=== PATIENT | male | born 1950 | race American Indian/Alaskan Native ===

== ENCOUNTER 2016-11-14 15:28 | Inpatient (IN) | payer OTHER ==
--- NOTE | 2016-11-14 16:08 | Emergency Department Report ---
Chief Complaint: Chest Pain Stated Complaint: CHEST PAIN Time Seen by Provider: 11/14/16 16:04 - HPI History of Present Illness: 66 y/o voice complain of chest pain x 1week .pt state pain 4/10.pt state he taken aspirin this am .pt denies any n/v at present . - ROS Review of Systems: Per HPI - Exam Vital Signs: Vital Signs 11/14/16 15:40 Temperature 98.1 F Pulse Rate 67 Respiratory 16 Rate Blood Pressure 114/76 O2 Sat by Pulse 95 Oximetry Physical Exam: GENERAL: The patient is well-developed and well-nourished. Patient is in NAD. HENT: Normocephalic. Atraumatic. Patient has moist mucous membranes. Throat: No erythema, swelling or exudates. EYES: Extraocular motions are intact, PERRL NECK: Supple. No meningitic signs are noted. There is no adenopathy noted. CHEST/LUNGS: Clear to auscultation bilaterally. No wheezing, rales or rhonchi noted. There is no respiratory distress noted. HEART/CARDIOVASCULAR: Regular rate and rhythm. Normal S1 S2. No murmurs, rubs , clicks, or gallops. ABDOMEN: Abdomen is soft, nontender.. Bowel sounds normoactive. There is no abdominal distention. Negative rebound tenderness. : Deferred. SKIN: There is no rash. There is no edema. There is no diaphoresis. NEURO: The patient is A&Ox3. The patient has no focal neurologic deficits. MUSCULOSKELETAL: There is no tenderness or deformity. There is no limitation range of motion. PSYCH: Pt has appropriate mood and affect. MSE screening note: Focused history and physical exam performed. Due to findings the following was ordered: ED Disposition for MSE Condition: Stable
[2016-11-14 16:51] LABS: Basophils % (Auto) 0.8 % (0.0-1.8); Eosinophils % (Auto) 1.8 % (0.0-4.3); Hematocrit 45.7 % (35.5-45.6); Hemoglobin 15.3 gm/dl (11.8-15.2); Mean Corpuscular HGB Conc 34 % (32-34); Mean Corpuscular Hemoglobin 33 pg (28-32); Mean Corpuscular Volume 98 fl (84-94); Platelet Count 293 K/mm3 (140-440); Red Blood Count 4.69 M/mm3 (3.65-5.03); Red Cell Distribution Width 15.2 % (13.2-15.2); White Blood Count 5.5 K/mm3 (4.5-11.0)
[2016-11-14 17:01] LABS: INR 0.94 (0.87-1.13)
[2016-11-14 17:02] LABS: Partial Thromboplastin Time 27.2 Sec. (24.2-36.6)
[2016-11-14 17:23] LABS: Anion Gap 17 mmol/L; Blood Urea Nitrogen 13 mg/dL (9-20); Carbon Dioxide 28 mmol/L (22-30); Chloride 102.9 mmol/L (98-107); Creatine Kinase 200 units/L (55-170); Glucose 101 mg/dL (75-100); Potassium 4.9 mmol/L (3.6-5.0); Sodium 143 mmol/L (137-145)
--- NOTE | 2016-11-15 02:39 | Admit Criteria Form ---
Admission Criteria Documentation: CHEST PAIN: OBSERVATION CARE USE THIS FORM ONLY WHEN INPATIENT ADMISSION CRITERIA ARE NOT MET. (Place X for any and all applicable criteria): Placement for observation care may be appropriate for a patient with chest pain and ANY ONE of the following (1)(2)(3)(4)(5): []I. Suspected cardiac ischemia with nondiagnostic initial evaluation (eg, ECG, cardiac biomarkers) requiring further immediate evaluation such as stress testing and repeat laboratory testing to clarify diagnosis []II. Other suspected diagnosis requiring observation and monitoring during diagnostic evaluation (eg, pulmonary embolus, aortic dissection, pneumothorax, pericarditis, GI bleeding) (6)(7)(8)(9) [X]III. Other observation care needs (Use General Criteria: Observation Care) The original [employer] content created by [employer] has been revised. The portions of the content which have been revised are identified through the use of italic text, and [facility] has neither reviewed nor approved the modified material. All other unmodified content is copyright [facility] [facility]. Please see references footnoted in the original [facility] edition 2015 Admission Criteria Met: Yes
[2016-11-15] MEDS ORDERED: LIDOCAINE VISCOUS 2% PO ONE (03:33)
[2016-11-15] MEDS ORDERED: ALUM-MAG HYDROX-SIMETH 200-200-20MG/5ML PO ONE (03:33)
--- NOTE | 2016-11-15 03:53 | Emergency Department Report ---
ED Chest Pain HPI - General Chief Complaint: Chest Pain Stated Complaint: CHEST PAIN Time Seen by Provider: 11/15/16 03:16 Source: patient, old records reviewed (September 2015 cardiac cath reviewed) Mode of arrival: Ambulatory Limitations: No Limitations - History of Present Illness Initial Comments: 66-year-old male with a past medical history CAD, IN in 2012 with 2 stent placement, prostate CA status post radiation, and GERD presents to the hospital complains of intermittent sternal chest pain for the past one week. Pain is sharp without aggravating or alleviating factors. Rated 4/10 in intensity. Denies associated shortness of breath, nausea, vomiting, or diaphoresis. Last [id number] travel was to and from [place] end october. No calf tenderness or edema reported. Compliant with medications. Patient last cardiac cath September 2015. Patient states he also has history of GERD and cannot office of the difference between IN and GERD related pain. Currently taking Zantac. Homicide Detective: Sarahi cleaning specialist Severity scale (0 -10): 2 - Related Data Home Medications Medication Instructions Recorded Confirmed Last Taken Aspirin [Aspirin BABY CHEW TAB] 81 mg PO QDAY 02/22/14 10/01/15 09/30/15 AtorvaSTATin [Lipitor] 80 mg PO DAILY 06/26/15 10/01/15 09/30/15 Metoprolol [Lopressor TAB] 12.5 mg PO BID 09/28/15 10/01/15 09/30/15 Pantoprazole [Protonix TAB] 40 mg PO QDAY 10/01/15 10/01/15 09/30/15 Previous Rx's Medication Instructions Recorded Last Taken Type Tamsulosin [Flomax] 0.4 mg PO QHS #30 05/16/15 09/30/15 Rx Allergies Allergy/AdvReac Type Severity Reaction Status Date / Time No Known Allergies Allergy Unverified 09/15/13 11:24 GIANNI score - Gianni Score Age > 65: (0) No Aspirin use within the Past 7 Days: (1) Yes 3 or more CAD Risk Factors: (1) Yes 2 or more Angina events in past 24 hrs: (1) Yes Known CAD with more than 50% Stenosis: (0) No Elevated Cardiac Markers: (0) No ST Deviation Greater than 0.5mm: (0) No GIANNI Score: 3 ED Review of Systems ROS: Stated complaint: CHEST PAIN Other details as noted in HPI Comment: All other systems reviewed and negative Other: Constitutional: No fevers chills Eyes: No eye pain visual changes ENT: No ear pain or throat pain Neck: Denies pain Respiratory: Denies cough wheezing shortness of breath Cardiovascular: Denies palpitations, syncop GI: Denies abdominal pain, nausea, vomiting, diarrhea : Denies dysuria, urinary frequency, or urgency Musculoskeletal: Denies back pain, joint swelling Skin: Denies rash, lesions, erythema Neurologic: Denies headache, numbness, weakness Psychiatric: Denies suicidal ideation, hallucinations ED Past Medical Hx - Past Medical History Hx Hypertension: Yes Hx Heart Attack/AMI: Yes (may 2013) Hx GERD: Yes Hx Asthma: No Hx HIV: No Additional medical history: high cholesterol, SBO - Surgical History Hx Coronary Stent: Yes (x2 in 05/2013) Hx Open Heart Surgery: Yes Additional Surgical History: splenectomy, hernia repair - Social History Smoking Status: Former Smoker - Medications Home Medications: Home Medications Medication Instructions Recorded Confirmed Last Taken Type Aspirin [Aspirin BABY CHEW TAB] 81 mg PO QDAY 02/22/14 10/01/15 09/30/15 History Tamsulosin [Flomax] 0.4 mg PO QHS #30 05/16/15 10/01/15 09/30/15 Rx AtorvaSTATin [Lipitor] 80 mg PO DAILY 06/26/15 10/01/15 09/30/15 History Metoprolol [Lopressor TAB] 12.5 mg PO BID 09/28/15 10/01/15 09/30/15 History Pantoprazole [Protonix TAB] 40 mg PO QDAY 10/01/15 10/01/15 09/30/15 History ED Physical Exam - General Limitations: No Limitations - Other Other exam information: General: No limitations, patient is alert in no acute distress Head exam: Atraumatic, normocephalic Eyes exam: Normal appearance, pupils equal reactive to light, extraocular movements intact ENT: Moist mucous membrane, normal oropharynx Neck exam: Normal inspection, full range of motion, no meningismus nontender Respiratory exam: Clear to auscultation bilateral, no wheezes, rales, crackles Cardiovascular: Normal rate and rhythm, normal heart sounds, chest wall nontender Abdomen: Soft, nondistended, and nontender, with normal bowel sounds, no rebound, or guarding Extremity: Full range of motion normal inspection no deformity, no calf tenderness or edema Back: Normal Inspection, full range of motion, no tenderness Neurologic: Alert, oriented x3, cranial nerves intact, no motor or sensory deficit Psychiatric: normal affect, normal mood Skin: Warm, dry, intact ED Course Vital Signs 11/14/16 11/15/16 11/15/16 15:40 01:07 03:43 Temperature 98.1 F 97.8 F Pulse Rate 67 58 L Respiratory 16 18 Rate Blood Pressure 114/76 127/77 141/77 Blood Pressure [Left] O2 Sat by Pulse 95 100 Oximetry 11/15/16 11/15/16 11/15/16 03:50 04:01 04:11 Temperature Pulse Rate 61 58 L Respiratory 18 12 18 Rate Blood Pressure 152/82 Blood Pressure 141/61 [Left] O2 Sat by Pulse 99 99 99 Oximetry 11/15/16 04:17 Temperature Pulse Rate 61 Respiratory Rate Blood Pressure Blood Pressure [Left] O2 Sat by Pulse Oximetry ED Medical Decision Making - Lab Data Result diagrams: 11/14/16 16:38 11/14/16 16:38 Lab Results 11/14/16 11/14/16 11/14/16 Range/Units 16:38 16:38 16:38 WBC 5.5 (4.5-11.0) K/mm3 RBC 4.69 (3.65-5.03) M/mm3 Hgb 15.3 H (11.8-15.2) gm/dl Hct 45.7 H (35.5-45.6) % MCV 98 H (84-94) fl MCH 33 H (28-32) pg MCHC 34 (32-34) % RDW 15.2 (13.2-15.2) % Plt Count 293 (140-440) K/mm3 Lymph % (Auto) 31.0 (13.4-35.0) % [place] % (Auto) 11.4 H (0.0-7.3) % Eos % (Auto) 1.8 (0.0-4.3) % Baso % (Auto) 0.8 (0.0-1.8) % Lymph # 1.7 (1.2-5.4) K/mm3 [place] # 0.6 (0.0-0.8) K/mm3 Eos # 0.1 (0.0-0.4) K/mm3 Baso # 0.0 (0.0-0.1) K/mm3 Seg Neutrophils % 55.0 (40.0-70.0) % Seg Neutrophils # 3.0 (1.8-7.7) K/mm3 PT 12.5 (12.2-14.9) Sec. INR 0.94 (0.87-1.13) APTT 27.2 (24.2-36.6) Sec. Sodium 143 (137-145) mmol/L Potassium 4.9 (3.6-5.0) mmol/L Chloride 102.9 (98-107) mmol/L Carbon Dioxide 28 (22-30) mmol/L Anion Gap 17 mmol/L BUN 13 (9-20) mg/dL Creatinine 1.0 (0.8-1.5) mg/dL Estimated GFR > 60 ml/min BUN/Creatinine Ratio 13.00 % Glucose 101 H (75-100) mg/dL Calcium 9.0 (8.4-10.2) mg/dL Total Creatine Kinase 200 H (55-170) units/L CK-MB (CK-2) 3.0 (0.0-4.0) ng/mL CK-MB (CK-2) Rel Index 1.5 (0-4) Troponin T < 0.010 (0.00-0.029) ng/mL - EKG Data -: EKG Interpreted by Me (sinus rhythm rate 63 left axis deviation no ST elevation IN) - EKG Data When compared to previous EKG there are: no significant change (10/01/2015) - Radiology Data Radiology results: image reviewed (chest x-ray PA and lateral: No acute finding) - Medical Decision Making I believe that pain is atypical however patient is unable to differentiate between IN pain, GERD pain, and atypical chest pain at this time. Initial cardiac enzymes are negative. D-dimer pending given recent trip and sharp nature of pain however, patient lacks shortness of breath or associated symptoms. Patient will be admitted given significant for further cardiac enzymes and observation - Differential Diagnosis GERD, IN, PE, unstable angina, atypical chest pain Critical Care Time: No Critical care attestation.: If time is entered above; I have spent that time in minutes in the direct care of this critically ill patient, excluding procedure time. ED Disposition Clinical Impression: Chest pain, Hyperlipidemia, Hypertension, GERD (gastroesophageal reflux disease ) Disposition: OP ADMITTED IP TO THIS HOSP Is pt being admited?: Yes Condition: Stable Time of Disposition: 04:22
--- NOTE | 2016-11-15 04:38 | History and Physical Report ---
History of Present Illness Chief complaint: chest pain History of present illness: 66 YO Male with RI, CAD S/P CABG and Stent Placement, GERD, HTN, HLD, CAP presents to ED for evaluation. Pt states that he has been experiencing multiple episodes of pain in his chest for the past week. Pain episodes have not resolved and have been present over the past 24 hours. Pain is sharp, 4/10, localized to the epigastric, lasting for several minutes, not relieved with pain , or relieved with rest. Pt denies fever, chills, Palpitations, NVD, Orthopnea, PND, Prolonged travel/immobility, Individual/Family history of DVT/PE, calf tenderness, leg pain, hemoptysis, syncope, unintentional weight loss, night sweats, bone pain, skin rashes, or recent ill contacts. Past History Past Medical History: acute RI, CAD, GERD, hypertension, hyperlipidemia Past Surgical History: CABG, hernia repair, Other (stent, splenectomy) Social history: , lives with family. denies: smoking, alcohol abuse, prescription drug abuse Family history: hypertension Medications and Allergies Allergies Allergy/AdvReac Type Severity Reaction Status Date / Time No Known Allergies Allergy Unverified 09/15/13 11:24 Home Medications Medication Instructions Recorded Confirmed Last Taken Type Aspirin [Aspirin BABY CHEW TAB] 81 mg PO QDAY 02/22/14 10/01/15 09/30/15 History Tamsulosin [Flomax] 0.4 mg PO QHS #30 05/16/15 10/01/15 09/30/15 Rx AtorvaSTATin [Lipitor] 80 mg PO DAILY 06/26/15 10/01/15 09/30/15 History Metoprolol [Lopressor TAB] 12.5 mg PO BID 09/28/15 10/01/15 09/30/15 History Pantoprazole [Protonix TAB] 40 mg PO QDAY 10/01/15 10/01/15 09/30/15 History Review of Systems All systems: negative Cardiovascular: chest pain Exam - Constitutional Vitals: Temp Pulse Resp BP Pulse Ox 97.8 F 61 18 152/82 99 11/15/16 01:07 11/15/16 04:17 11/15/16 04:11 11/15/16 04:01 11/15/16 04:11 General appearance: Present: no acute distress, well-nourished - EENT Eyes: Present: PERRL ENT: hearing intact, clear oral mucosa - Neck Neck: Present: supple, normal ROM - Respiratory Respiratory effort: normal Respiratory: bilateral: CTA - Cardiovascular Heart Sounds: Present: S1 & S2. Absent: rub, click - Extremities Extremities: pulses symmetrical, No edema Peripheral Pulses: within normal limits - Abdominal General gastrointestinal: Present: soft, non-tender, non-distended, normal bowel sounds Male genitourinary: Present: normal - Integumentary Integumentary: Present: clear, warm, dry - Musculoskeletal Musculoskeletal: gait normal, strength equal bilaterally - Psychiatric Psychiatric: appropriate mood/affect, intact judgment & insight - Neurologic Neurologic: CNII-XII intact, moves all extremities Results - Labs CBC & Chem 7: 11/14/16 16:38 11/14/16 16:38 Labs: Abnormal lab results 11/14/16 11/14/16 Range/Units 16:38 16:38 Hgb 15.3 H (11.8-15.2) gm/dl Hct 45.7 H (35.5-45.6) % MCV 98 H (84-94) fl MCH 33 H (28-32) pg [place] % (Auto) 11.4 H (0.0-7.3) % Glucose 101 H (75-100) mg/dL Total Creatine Kinase 200 H (55-170) units/L Assessment and Plan - Patient Problems (1) Angina at rest Current Visit: Yes Status: Acute Plan to address problem: Chest pain protocol: Serial cardiac enzymes, ekg, telemetry, echo, cardiology consulted. (2) GERD (gastroesophageal reflux disease) Current Visit: Yes Status: Chronic Plan to address problem: PPI therapy (3) Hyperlipidemia Current Visit: Yes Status: Chronic Plan to address problem: Statin therapy, lipid panel (4) CAD (coronary artery disease) Current Visit: No Status: Chronic Plan to address problem: continue supportive care, admit to telemetry, chest pain protocol, cardiology consulted. (5) DVT prophylaxis Current Visit: No Status: Acute
[2016-11-15] MEDS ORDERED: TYLENOL PO PRN (04:39)
[2016-11-15] MEDS ORDERED: SODIUM CHLORIDE FLUSH SYRINGE 10 ML IV PRN (04:39)
[2016-11-15 05:06] LABS: Creatine Kinase MB 2.7 ng/mL (0.0-4.0)
[2016-11-15 05:07] LABS: Creatine Kinase 153 units/L (55-170)
[2016-11-15 09:01] LABS: Creatine Kinase MB 2.7 ng/mL (0.0-4.0)
[2016-11-15 09:05] LABS: Creatine Kinase 145 units/L (55-170)
--- NOTE | 2016-11-15 09:12 | Consultation ---
History of Present Illness Consult date: 11/15/16 Consult reason: chest pain History of present illness: 66 year old male with multiple admissions for chest pain previously presenting with heart burn type non-exertional chest pain that lasted 1 week in duration. Patient has a history of GERD and admits drinking more than usual amount of alcohol during the holiday. For unknown reason, he also stopped taking zantac and resumed the meds only 1 week ago. He denies exertional tightness or shortness of breath. His ECG is showing no ischemic ECG changes and Erich are negative x 2. Past History Past Medical History: acute ND, CAD, GERD, hypertension, hyperlipidemia Past Surgical History: CABG, hernia repair, Other (stent, splenectomy) Social history: , lives with family. denies: smoking, alcohol abuse, prescription drug abuse Family history: hypertension Medications and Allergies Allergies Allergy/AdvReac Type Severity Reaction Status Date / Time No Known Allergies Allergy Unverified 09/15/13 11:24 Home Medications Medication Instructions Recorded Confirmed Last Taken Type Aspirin [Aspirin BABY CHEW TAB] 81 mg PO QDAY 02/22/14 10/01/15 09/30/15 History Tamsulosin [Flomax] 0.4 mg PO QHS #30 05/16/15 10/01/15 09/30/15 Rx AtorvaSTATin [Lipitor] 80 mg PO DAILY 06/26/15 10/01/15 09/30/15 History Metoprolol [Lopressor TAB] 12.5 mg PO BID 09/28/15 10/01/15 09/30/15 History Pantoprazole [Protonix TAB] 40 mg PO QDAY 10/01/15 10/01/15 09/30/15 History Active Meds: Active Medications Acetaminophen (Tylenol) 650 mg PO Q4H PRN PRN Reason: Pain MILD(1-3)/Fever >100.5/FLOWERS Aspirin (Baby Aspirin) 81 mg PO QDAY VANESA Atorvastatin Calcium (Lipitor) 80 mg PO DAILY VANESA Metoprolol Tartrate (Lopressor) 12.5 mg PO BID VANESA Pantoprazole Sodium (Protonix) 40 mg PO BID VANESA Sodium Chloride (Sodium Chloride Flush Syringe 10 Ml) 10 ml IV PRN PRN PRN Reason: LINE FLUSH Tamsulosin HCl (Flomax) 0.4 mg PO QHS [facility] Review of Systems All systems: negative Physical Examination Vital Signs Temp Pulse Resp BP Pulse Ox 98.1 F 67 16 114/76 95 11/14/16 15:40 11/14/16 15:40 11/14/16 15:40 11/14/16 15:40 11/14/16 15:40 General appearance: no acute distress HEENT: Positive: PERRL Neck: Positive: neck supple Cardiac: Positive: Reg Rate and Rhythm, Regular Rate Lungs: Positive: Normal Exam Neuro: Positive: Grossly Intact Abdomen: Positive: Soft Results 11/14/16 16:38 11/14/16 16:38 Cardiac Enzymes 11/15/16 11/15/16 11/15/16 Range/Units 04:42 04:42 07:51 Total Creatine Kinase 153 145 (55-170) units/L CK-MB (CK-2) 2.7 2.7 (0.0-4.0) ng/mL CK-MB (CK-2) Rel Index 1.7 1.8 (0-4) Troponin T < 0.010 < 0.010 (0.00-0.029) ng/mL Triglycerides 64 (2-149) mg/dL Cholesterol 153 (50-199) mg/dL LDL Cholesterol Direct 93 (50-130) mg/dL HDL Cholesterol 48 (40-59) mg/dL Cholesterol/HDL Ratio 3.18 % Lipids 11/15/16 Range/Units 04:42 Triglycerides 64 (2-149) mg/dL Cholesterol 153 (50-199) mg/dL HDL Cholesterol 48 (40-59) mg/dL Cholesterol/HDL Ratio 3.18 % - EKG Interpretation EKG: sinus rhythm EKG interpretations - Telemetry EKG Rhythm: Sinus Rhythm Assessment and Plan Atypical chest pain consistent with GERD CAD s/p PCI to RCA Cath 09/2015 - Patent RCA stent, non-obstructive disease in D1, normal LVEF Systemic Hypertension Hyperlipidemia Recommendations: No further cardiac work-up is needed Educated about alcohol intake and association with GERD May go home on zantac and a PPI Will sign off
--- NOTE | 2016-11-15 09:50 | XRay Report ---
ROUTINE CHEST, TWO VIEWS: HISTORY: chest pain. The trachea, heart, mediastinal contour, lung richter and bony thorax are unremarkable. IMPRESSION: Unremarkable chest x-ray. No change since 09/28/15.
[2016-11-15] MEDS ORDERED: PROTONIX PO SCH (10:00)
[2016-11-15] MEDS ORDERED: LOPRESSOR PO SCH (10:00)
[2016-11-15] MEDS ORDERED: BABY ASPIRIN PO SCH (10:00)
--- NOTE | 2016-11-15 11:03 | Discharge Summary ---
Providers - Providers Date of Admission: 11/15/16 04:39 Date of discharge: 11/15/16 Attending physician: BC EATON Primary care physician: DUKE ETIENNE Hospitalization Condition: Fair Disposition: DISCHARGED TO HOME OR SELFCARE - Discharge Diagnoses (1) Chest pain Status: Acute Comment: Resolved chest pain with negative stress test. Chest pain is likely due to GERD. (2) GERD (gastroesophageal reflux disease) Status: Chronic (3) Hyperlipidemia Status: Chronic (4) Hypertension Status: Chronic (5) CAD (coronary artery disease) Status: Chronic Core Measure Documentation - Palliative Care Palliative Care/ Comfort Measures: Not Applicable - Core Measures Any of the following diagnoses?: none Exam - Constitutional Vitals: Temp Pulse Resp BP Pulse Ox 97.8 F 62 20 109/66 98 11/15/16 07:50 11/15/16 07:50 11/15/16 07:50 11/15/16 07:50 11/15/16 10:31 Plan Activity: advance as tolerated Diet: low fat, low cholesterol, low salt Additional Instructions: 1.Follow up with Dr. Duke Etienne in 3-5 days. 2.Follow up with Dr. Percy Norris in 3-5 days. Follow up with: DUKE ETIENNE MD [Primary Care Provider] - 3-5 Days Prescriptions: Aspirin EC [Aspirin Enteric Coated TAB] 81 mg PO QDAY #30 tablet. Pantoprazole [Protonix TAB] 40 mg PO BID #60 tablet
[2016-11-15 12:12] VITALS: BP 105/70
[2016-11-15] MEDS ORDERED: FLOMAX PO SCH (22:00)
== END 2016-11-15 13:00 | disposition home or self-care (01) | DRG 392 ==
LOC: ED 15:28 → 4A 11-15 04:39
PROVIDERS: ADMIT Internal Medicine; ATTEND Internal Medicine
DX: K21.9 Gastro-esophageal reflux disease without esophagitis (principal); I10 Essential (primary) hypertension; E78.5 Hyperlipidemia, unspecified; R07.89 Other chest pain; I25.119 Atherosclerotic heart disease of native coronary artery with unspecified angina pectoris; I25.2 Old myocardial infarction; Z85.46 Personal history of malignant neoplasm of prostate; Z95.1 Presence of aortocoronary bypass graft; Z82.49 Family history of ischemic heart disease and other diseases of the circulatory system
CPT/HCPCS: 36415; 71020; 80048; 80061; 82550; 82553; 84484; 85025; 85610; 85730; 93005; 93010; A9270-GY

== ENCOUNTER 2018-02-14 01:35 | Emergency (ER) | payer MEDICARE, OTHER ==
[2018-02-14] MEDS ORDERED: ZOFRAN ODT PO ONE (02:09)
--- NOTE | 2018-02-14 02:12 | Emergency Department Report ---
Stated Complaint: WEAKNESS - HPI History of Present Illness: I performed a brief screening exam. He spoke with customer experience associate who was initially concerning for ST elevation GA. He stated that the 4-lead had an odd ST morphology. I reviewed 12-lead EKG with parmaedic. No evidence of significant ST elevation. Mr. Barros presents with mild stomach upset and dizziness for the past 2 hours. He was well otherwise today. I provided screening orders with Sagrario ODAlexis and basic labs. MSE screening note: Focused history and physical exam performed. Due to findings the following was ordered: ED Disposition for MSE Condition: Stable
[2018-02-14 02:33] LABS: Basophils # (Auto) 0.1 K/mm3 (0.0-0.1); Basophils % (Auto) 1.2 % (0.0-1.8); Eosinophils % (Auto) 0.9 % (0.0-4.3); Hematocrit 43.9 % (35.5-45.6); Hemoglobin 14.8 gm/dl (11.8-15.2); Lymphocytes # (Auto) 1.5 K/mm3 (1.2-5.4); Lymphocytes % (Auto) 28.3 % (13.4-35.0); Mean Corpuscular HGB Conc 34 % (32-34); Mean Corpuscular Hemoglobin 32 pg (28-32); Mean Corpuscular Volume 96 fl (84-94); Monocytes # (Auto) 0.7 K/mm3 (0.0-0.8); Monocytes % (Auto) 12.5 % (0.0-7.3); Platelet Count 268 K/mm3 (140-440); Red Blood Count 4.59 M/mm3 (3.65-5.03); Red Cell Distribution Width 15.1 % (13.2-15.2)
[2018-02-14 02:41] LABS: BUN/Creatinine Ratio 14; Blood Urea Nitrogen 11 mg/dL (9-20); Calcium 8.4 mg/dL (8.4-10.2); Hemolysis Index 13
--- NOTE | 2018-02-14 05:01 | Emergency Department Report ---
ED Dizziness HPI - General Chief Complaint: Dizziness Stated Complaint: WEAKNESS Source: patient Mode of arrival: Stretcher Limitations: No Limitations - History of Present Illness Initial Comments: Mr. Barros is a very pleasant 67-year-old male with history of coronary artery disease, prostate cancer and GERD. He presents with lightheadedness stomach upset and nausea. Symptoms began 2 hours prior to arrival. He stated that he had a full large dinner. In jest, he blames his 's cooking for his symptoms. He had mild symptoms. However he wanted to be safe considering his extensive history. He denies chest pain. Denies abdominal pain. Denies headache. Denies fever. After observation in the ED he is anxious to be discharged. He is currently symptom-free after Zofran. He said it initially he had such dizziness that he had difficulty ambulating. He denies any paresthesias. He denies paralysis. He denies trouble with speech. Denies visual disturbance. MD Complaint: dizziness -: Gradual, hour(s) (2) Description: lightheadedness History of Same: No History of Trauma: No Severity: mild Improves With: nothing Worsens With: position Associated Symptoms: denies: ataxia, chest pain, confusion, diaphoresis, fever/ chills, loss of appetite, malaise, seizure, shortness of breath, syncope, weakness - Related Data Home Medications Medication Instructions Recorded Confirmed Last Taken AtorvaSTATin [Lipitor] 80 mg PO DAILY 06/26/15 11/15/16 11/14/16 Metoprolol [Lopressor TAB] 12.5 mg PO BID 09/28/15 11/15/16 11/14/16 Previous Rx's Medication Instructions Recorded Last Taken Type Tamsulosin [Flomax] 0.4 mg PO QHS #30 05/16/15 11/14/16 Rx Aspirin EC [Aspirin Enteric Coated 81 mg PO QDAY #30 tablet. 11/15/16 Unknown Rx TAB] Pantoprazole [Protonix TAB] 40 mg PO BID #60 tablet 11/15/16 Unknown Rx Ondansetron [Zofran Odt] 4 mg PO Q8HR PRN #6 tab.rapdis 02/14/18 Unknown Rx Allergies Allergy/AdvReac Type Severity Reaction Status Date / Time No Known Allergies Allergy Unverified 09/15/13 11:24 ED Review of Systems ROS: Stated complaint: WEAKNESS Other details as noted in HPI Comment: All other systems reviewed and negative Constitutional: malaise. denies: fever Respiratory: denies: cough Cardiovascular: denies: chest pain, palpitations Endocrine: denies: excessive sweating Gastrointestinal: nausea. denies: abdominal pain, vomiting, diarrhea ED Past Medical Hx - Past Medical History Hx Hypertension: Yes Hx Heart Attack/AMI: Yes (may 2013) Hx Congestive Heart Failure: No Hx Diabetes: No Hx GERD: Yes Hx of Cancer: Yes (prostate) Hx Asthma: No Hx COPD: No Hx HIV: No Additional medical history: high cholesterol, SBO - Surgical History Hx Coronary Stent: Yes (x2 in 05/2013) Hx Open Heart Surgery: Yes Additional Surgical History: splenectomy, hernia repair, adrenal surgery - Social History Smoking Status: Never Smoker Substance Use Type: None - Medications Home Medications: Home Medications Medication Instructions Recorded Confirmed Last Taken Type Tamsulosin [Flomax] 0.4 mg PO QHS #30 05/16/15 11/15/16 11/14/16 Rx AtorvaSTATin [Lipitor] 80 mg PO DAILY 06/26/15 11/15/16 11/14/16 History Metoprolol [Lopressor TAB] 12.5 mg PO BID 09/28/15 11/15/16 11/14/16 History Aspirin EC [Aspirin Enteric Coated 81 mg PO QDAY #30 tablet. 11/15/16 Unknown Rx TAB] Pantoprazole [Protonix TAB] 40 mg PO BID #60 tablet 11/15/16 Unknown Rx Ondansetron [Zofran Odt] 4 mg PO Q8HR PRN #6 tab.rapdis 02/14/18 Unknown Rx ED Physical Exam - General Limitations: No Limitations General appearance: alert, in no apparent distress - Head Head exam: Present: atraumatic, normocephalic - Eye Eye exam: Present: normal appearance - ENT ENT exam: Present: mucous membranes moist - Neck Neck exam: Present: normal inspection - Respiratory Respiratory exam: Present: normal lung sounds bilaterally. Absent: respiratory distress, wheezes, rales, rhonchi - Cardiovascular Cardiovascular Exam: Present: regular rate, normal rhythm, normal heart sounds. Absent: systolic murmur, diastolic murmur, rubs, gallop - GI/Abdominal GI/Abdominal exam: Present: soft, normal bowel sounds. Absent: distended, tenderness, guarding, rebound - Rectal Rectal exam: Present: deferred - Extremities Exam Extremities exam: Present: normal inspection - Back Exam Back exam: Present: normal inspection - Neurological Exam Neurological exam: Present: alert, oriented X3, CN II-XII intact, normal gait. Absent: motor sensory deficit - Psychiatric Psychiatric exam: Present: normal affect, normal mood - Skin Skin exam: Present: warm, dry, intact, normal color. Absent: rash ED Course Vital Signs 02/14/18 02/14/18 02:05 02:14 Temperature 98.4 F 98.4 F Pulse Rate 74 74 Respiratory 18 18 Rate Blood Pressure 133/74 133/74 O2 Sat by Pulse 97 97 Oximetry ED Medical Decision Making - Lab Data Result diagrams: 02/14/18 02:21 02/14/18 02:21 - EKG Data -: EKG Interpreted by Me EKG shows normal: sinus rhythm, axis, intervals, ST-T waves Rate: normal - EKG Data 02/14/18 05:00 EKG obtained at 236 Rate 80 beats minute left axis deviation no signs of ischemia no significant ST elevation +r Q waves are present in the inferior leads - Medical Decision Making Mr. Barros presents with 2 hours of stomach upset and lightheadedness. No indication of CVA. No indication of ACS. Clinical impression, suspect vasovagal scenario episode with mild GI discomfort. Mr. Barros is currently symptom-free. He understands return precautions which include chest pain, abdominal pain or recurrence of lightheadedness. Critical care attestation.: If time is entered above; I have spent that time in minutes in the direct care of this critically ill patient, excluding procedure time. ED Disposition Clinical Impression: Dyspepsia, Lightheadedness Disposition: DC-01 TO HOME OR SELFCARE Is pt being admited?: No Does the pt Need Aspirin: No Condition: Stable Instructions: Lightheadedness (ED) Prescriptions: Ondansetron [Zofran Odt] 4 mg PO Q8HR PRN #6 tab.rapdis PRN Reason: Nausea And Vomiting Referrals: PRIMARY CARE,MD [Primary Care Provider] - 3-5 Days Time of Disposition: 05:03
[2018-02-14 05:28] VITALS: BP 120/75
== END 2018-02-14 05:32 | disposition home or self-care (01) ==
LOC: ED 01:35
DX: R42 Dizziness and giddiness (principal); R10.13 Epigastric pain; I25.2 Old myocardial infarction; I10 Essential (primary) hypertension; K21.9 Gastro-esophageal reflux disease without esophagitis; I25.10 Atherosclerotic heart disease of native coronary artery without angina pectoris; E78.00 Pure hypercholesterolemia, unspecified; Z90.81 Acquired absence of spleen; Z95.818 Presence of other cardiac implants and grafts
CPT/HCPCS: 36415; 80048; 85025; 93005; 93010; 99284; Q0162

== ENCOUNTER 2018-06-27 15:44 | Emergency (ER) | payer MEDICARE, OTHER ==
[2018-06-27] MEDS ORDERED: ZOFRAN IV ONE (16:01)
[2018-06-27] MEDS ORDERED: BENADRYL IV ONE (16:01)
[2018-06-27] MEDS ORDERED: NACL 0.9% 1000 ML 1,000 ML IV ONE (16:01)
--- NOTE | 2018-06-27 16:17 | Emergency Department Report ---
HPI - General Chief Complaint: Nausea/Vomiting/Diarrhea Time Seen by Provider: 06/27/18 16:00 - HPI HPI: The patient is a 67-year-old male who presents for evaluation of nausea and vomiting. The patient reports constant severe nausea and multiple episodes of nonbilious, nonbloody emesis since awakening at 11 AM earlier today, about 5 hours prior to arrival, exacerbated with eating. The patient also reports associated mild lightheadedness with position changes. The patient denies fever , chills, night sweats, headache, neck pain or stiffness, no deficit, chest pain , dyspnea, diarrhea, blood in the stool, dark tarry stool, dysuria, hematuria, flank pain, genital discharge, inability to pass flatus. ED Past Medical Hx - Past Medical History Hx Hypertension: Yes Hx Heart Attack/AMI: Yes (may 2013) Hx Congestive Heart Failure: No Hx Diabetes: No Hx GERD: Yes Hx Asthma: No Hx COPD: No Hx HIV: No Additional medical history: high cholesterol, SBO - Surgical History Hx Coronary Stent: Yes (x2 in 05/2013) Hx Open Heart Surgery: Yes Additional Surgical History: splenectomy, hernia repair, adrenal surgery - Social History Smoking Status: Never Smoker - Medications Home Medications: Home Medications Medication Instructions Recorded Confirmed Last Taken Type Tamsulosin [Flomax] 0.4 mg PO QHS #30 05/16/15 11/15/16 11/14/16 Rx AtorvaSTATin [Lipitor] 80 mg PO DAILY 06/26/15 11/15/16 11/14/16 History Metoprolol [Lopressor TAB] 12.5 mg PO BID 09/28/15 11/15/16 11/14/16 History Aspirin EC [Aspirin Enteric Coated 81 mg PO QDAY #30 tablet.dr 11/15/16 Unknown Rx TAB] Pantoprazole [Protonix TAB] 40 mg PO BID #60 tablet 11/15/16 Unknown Rx Ondansetron [Zofran Odt] 4 mg PO Q8HR PRN #6 tab.rapdis 02/14/18 Unknown Rx Ondansetron [Zofran TAB] 4 mg PO Q8HR PRN #20 tablet 06/27/18 Unknown Rx ED Review of Systems ROS: Stated complaint: VOMITING/DIZZINESS Other details as noted in HPI Constitutional: denies: fever ENT: denies: throat or neck pain Respiratory: denies: cough, shortness of breath Cardiovascular: denies: chest pain Endocrine: denies unexplained weight loss or gain Gastrointestinal: denies: abdominal pain reports nausea Genitourinary: denies: dysuria Musculoskeletal: denies: leg swelling Skin: denies: rash Neurological: denies: headache Hematological/Lymphatic: denies: easy bleeding or easy bruising Psych: denies sadness or hopelessness Physical Exam - Physical Exam Physical Exam: General: well-nourished, well-developed, no acute distress Head: Normocephalic, atraumatic Eyes: normal sclera ENT: Mucous membranes are pale and dry Neck: No neck stiffness, no cervical adenopathy Respiratory: Breath sounds equal bilaterally, no wheezing, rales, or rhonchi Cardio: S1 and S2 present, no murmurs, rubs, gallops, capillary refill is delayed Abdomen: Normoactive bowel sounds, soft abdomen, no rigidity, no guarding or rebound tenderness Chest WALL/Back: No tenderness to palpation of the chest wall, no CVA tenderness with percussion Musc: No pitting edema Skin: No rash Neuro: no facial drooping, normal speech Psych: Normal affect ED Medical Decision Making - Lab Data Result diagrams: 06/27/18 16:08 06/27/18 16:08 - Medical Decision Making The patient was seen and examined by myself. The patient is placed on a aws developer and continuous pulse ox. On initial evaluation, the patient was found to be in no distress. Evaluation orders are placed. IV access is established and the patient is given 1 L normal saline fluid bolus and Zofran for nausea. Lab results were non-concerning including WBC, hemoglobin, hematocrit, electrolytes, renal function. The patient was reevaluated and reported that their symptoms were resolved. The patient is stable for discharge with outpatient follow-up. The patient is given follow-up and return instructions. The patient expressed understanding and agreed with the plan. The patient is discharged in stable condition. Critical care attestation.: If time is entered above; I have spent that time in minutes in the direct care of this critically ill patient, excluding procedure time. ED Disposition Clinical Impression: Orthostatic dizziness, Dehydration, Nausea and vomiting in adult Disposition: DC-01 TO HOME OR SELFCARE Is pt being admited?: No Does the pt Need Aspirin: No Condition: Stable Instructions: Acute Nausea and Vomiting (ED), Gastroenteritis (ED) Referrals: PRIMARY CARE, [Primary Care Provider] - 3-5 Days Time of Disposition: 17:46
[2018-06-27 16:31] LABS: Hematocrit 43.8 % (35.5-45.6); Hemoglobin 14.4 gm/dl (11.8-15.2); Mean Corpuscular HGB Conc 33 % (32-34); Mean Corpuscular Hemoglobin 32 pg (28-32); Mean Corpuscular Volume 98 fl (84-94); Platelet Count 256 K/mm3 (140-440); Red Blood Count 4.45 M/mm3 (3.65-5.03); Red Cell Distribution Width 15.4 % (13.2-15.2)
[2018-06-27 16:37] LABS: BUN/Creatinine Ratio 11; Blood Urea Nitrogen 10 mg/dL (9-20); Calcium 8.6 mg/dL (8.4-10.2); Hemolysis Index 13
[2018-06-27 17:40] LABS: Basophils % (Manual) 0 % (0.0-1.8); Total Cells Counted 100
[2018-06-27 17:41] LABS: Anisocytosis 1+; Large Platelets 1+; Platelet Estimate Consistent w Auto; Poikilocytosis 1+
[2018-06-27 18:14] VITALS: BP 125/69
== END 2018-06-27 18:17 | disposition home or self-care (01) ==
LOC: ED 15:44
DX: E86.0 Dehydration (principal); R42 Dizziness and giddiness; R11.2 Nausea with vomiting, unspecified; R11.0 Nausea; K21.9 Gastro-esophageal reflux disease without esophagitis; E78.00 Pure hypercholesterolemia, unspecified; Z90.81 Acquired absence of spleen; Z79.82 Long term (current) use of aspirin
CPT/HCPCS: 36415; 80048; 85007; 85025; 96361; 96374; 96375; 99284; J1200; J2405; J7030

== ENCOUNTER 2018-11-26 07:52 | Emergency (ER) | payer MEDICARE ==
--- NOTE | 2018-11-26 08:16 | Emergency Department Report ---
ED Chest Pain HPI - General Chief Complaint: Chest Pain Stated Complaint: CHEST PAIN Time Seen by Provider: 11/26/18 08:14 Source: patient Mode of arrival: Ambulatory Limitations: No Limitations - History of Present Illness Initial Comments: This is a 68-year-old male with a chief complaint of chest pain. He sees [facility]. He was admitted in November 2016 for chest pain with the following conclusion by the informal waiter/waitress: Atypical chest pain consistent with GERD CAD s/p PCI to RCA Cath 09/2015 - Patent RCA stent, non-obstructive disease in D1, normal LVEF Systemic Hypertension Hyperlipidemia Recommendations: No further cardiac work-up is needed Educated about alcohol intake and association with GERD May go home on zantac and a PPI Will sign off The patient tells me that 2 days ago he unloaded a trailer. He did not have any chest pain then. Last night is " cursed at me." He developed some right pectoral chest pain at that time. He had no associated symptoms. He stated it felt like a pressing, nonpleuritic and nonradiating. He went to work and worked 7 hours had no chest pain. On the way home he had recurrent right sided pressing so he came to the emergency department. Again he had no associated symptoms. He states he also has reflux but it didn't feel like that. MD Complaint: chest pain -: Gradual Onset: during rest, other (associated with stress) Pain Location: right chest Pain Radiation: none Severity: mild Quality: other (like a "strained muscle or pressing") Consistency: intermittent, now resolved Improves With: nothing Worsens With: other Context: other re: denies: nausea, vomting, diaphoresis, dyspnea, sense of impending doom Other Symptoms: denies: cough Treatments Prior to Arrival: none - Related Data On Oral Contraceptives: No Home Medications Medication Instructions Recorded Confirmed Last Taken AtorvaSTATin [Lipitor] 80 mg PO DAILY 06/26/15 11/15/16 11/14/16 Metoprolol [Lopressor TAB] 12.5 mg PO BID 09/28/15 11/15/16 11/14/16 Previous Rx's Medication Instructions Recorded Last Taken Type Tamsulosin [Flomax] 0.4 mg PO QHS #30 05/16/15 11/14/16 Rx Aspirin EC [Aspirin Enteric Coated 81 mg PO QDAY #30 tablet. 11/15/16 Unknown Rx TAB] Pantoprazole [Protonix TAB] 40 mg PO BID #60 tablet 11/15/16 Unknown Rx Ondansetron [Zofran Odt] 4 mg PO Q8HR PRN #6 tab.rapdis 02/14/18 Unknown Rx Ondansetron [Zofran TAB] 4 mg PO Q8HR PRN #20 tablet 06/27/18 Unknown Rx Allergies Allergy/AdvReac Type Severity Reaction Status Date / Time No Known Allergies Allergy Verified 11/26/18 08:00 Heart Score - HEART Score History: Slightly suspicious EKG: Normal Age: > 65 Risk factors: > 3 risk factors or hx of atherosclerotic disease Troponin: < normal limit HEART Score: 4 - Critical Actions Critical Actions: 4-6 pts:12-16.6% risk of adverse cardiac event. Should be admitted ED Review of Systems ROS: Stated complaint: CHEST PAIN Other details as noted in HPI Constitutional: denies: chills, fever Eyes: denies: eye pain, eye discharge, vision change ENT: denies: ear pain, throat pain Respiratory: denies: cough, shortness of breath, wheezing Cardiovascular: as per HPI, chest pain. denies: palpitations Endocrine: no symptoms reported Gastrointestinal: denies: abdominal pain, nausea, diarrhea Genitourinary: denies: urgency, dysuria Musculoskeletal: denies: back pain, joint swelling, arthralgia Skin: denies: rash, lesions Neurological: denies: headache, weakness, paresthesias Psychiatric: denies: anxiety, depression Hematological/Lymphatic: denies: easy bleeding, easy bruising ED Past Medical Hx - Past Medical History Hx Hypertension: Yes Hx Heart Attack/AMI: Yes (may 2013) Hx Congestive Heart Failure: No Hx Diabetes: No Hx GERD: Yes Hx of Cancer: Yes (prostate) Hx Asthma: No Hx COPD: No Hx HIV: No Additional medical history: high cholesterol, SBO, AMINA, hodgkins lymphoma - Surgical History Hx Coronary Stent: Yes (x2 in 05/2013) Hx Open Heart Surgery: Yes Additional Surgical History: splenectomy, hernia repair, adrenal surgery - Social History Smoking Status: Never Smoker Substance Use Type: None - Medications Home Medications: Home Medications Medication Instructions Recorded Confirmed Last Taken Type Tamsulosin [Flomax] 0.4 mg PO QHS #30 05/16/15 11/15/16 11/14/16 Rx AtorvaSTATin [Lipitor] 80 mg PO DAILY 06/26/15 11/15/16 11/14/16 History Metoprolol [Lopressor TAB] 12.5 mg PO BID 09/28/15 11/15/16 11/14/16 History Aspirin EC [Aspirin Enteric Coated 81 mg PO QDAY #30 tablet. 11/15/16 Unknown Rx TAB] Pantoprazole [Protonix TAB] 40 mg PO BID #60 tablet 11/15/16 Unknown Rx Ondansetron [Zofran Odt] 4 mg PO Q8HR PRN #6 tab.rapdis 02/14/18 Unknown Rx Ondansetron [Zofran TAB] 4 mg PO Q8HR PRN #20 tablet 06/27/18 Unknown Rx ED Physical Exam - General Limitations: No Limitations General appearance: alert, in no apparent distress - Head Head exam: Present: atraumatic, normocephalic - Eye Eye exam: Present: normal appearance. Absent: scleral icterus - ENT ENT exam: Present: mucous membranes moist - Neck Neck exam: Present: normal inspection - Respiratory Respiratory exam: Present: normal lung sounds bilaterally. Absent: respiratory distress - Cardiovascular Cardiovascular Exam: Present: regular rate, normal rhythm. Absent: systolic murmur, diastolic murmur, rubs, gallop - GI/Abdominal GI/Abdominal exam: Present: soft, normal bowel sounds. Absent: distended, tenderness, guarding, rebound, rigid - Rectal Rectal exam: Present: deferred - Extremities Exam Extremities exam: Present: normal inspection - Back Exam Back exam: Present: normal inspection - Neurological Exam Neurological exam: Present: alert, oriented X3 - Psychiatric Psychiatric exam: Present: normal affect, normal mood - Skin Skin exam: Present: warm, dry, intact, normal color. Absent: rash ED Course Vital Signs 11/26/18 11/26/18 11/26/18 08:00 09:14 09:15 Temperature 97.8 F Pulse Rate 84 73 78 Respiratory 18 15 16 Rate Blood Pressure 152/87 Blood Pressure [Right] O2 Sat by Pulse 97 95 94 Oximetry 11/26/18 11/26/18 11/26/18 09:23 09:30 09:45 Temperature Pulse Rate 68 82 70 Respiratory 16 13 14 Rate Blood Pressure 107/73 113/72 Blood Pressure 125/78 [Right] O2 Sat by Pulse 98 94 Oximetry 11/26/18 11/26/18 11/26/18 10:00 10:15 10:30 Temperature Pulse Rate 74 81 71 Respiratory 13 13 12 Rate Blood Pressure 113/72 116/82 117/80 Blood Pressure [Right] O2 Sat by Pulse 96 94 94 Oximetry 11/26/18 11/26/18 10:45 11:00 Temperature Pulse Rate 59 L 62 Respiratory 14 13 Rate Blood Pressure 112/57 110/61 Blood Pressure [Right] O2 Sat by Pulse 94 94 Oximetry - Reevaluation(s) Reevaluation #1: Patient asymptomatic and requesting discharge. Looks well. 11/26/18 13:10 MARTHA score - Martha Score Age > 65: (0) No Aspirin use within the Past 7 Days: (1) Yes 3 or more CAD Risk Factors: (1) Yes 2 or more Angina events in past 24 hrs: (1) Yes Known CAD with more than 50% Stenosis: (0) No Elevated Cardiac Markers: (0) No ST Deviation Greater than 0.5mm: (0) No MARTHA Score: 3 ED Medical Decision Making - Lab Data Result diagrams: 11/26/18 08:44 11/26/18 08:44 Laboratory Results - last 24 hr 11/26/18 11/26/18 08:44 08:44 WBC 5.1 RBC 4.70 Hgb 15.2 Hct 45.6 MCV 97 H MCH 32 MCHC 33 RDW 15.0 Plt Count 298 Lymph % (Auto) 39.3 H [place] % (Auto) 12.0 H Eos % (Auto) 1.8 Baso % (Auto) 0.5 Lymph # 2.0 [place] # 0.6 Eos # 0.1 Baso # 0.0 Seg Neutrophils % 46.4 Seg Neutrophils # 2.4 Sodium 138 Potassium 5.5 H Chloride 102.5 Carbon Dioxide 23 Anion Gap 18 BUN 10 Creatinine 1.0 Estimated GFR > 60 BUN/Creatinine Ratio 10 Glucose 106 H Calcium 8.6 Total Creatine Kinase 292 H CK-MB (CK-2) 3.5 CK-MB (CK-2) Rel Index 1.1 Troponin T < 0.010 - Medical Decision Making Hemolyzed specimen. Consider elevated potassium nonsignificant. Critical care attestation.: If time is entered above; I have spent that time in minutes in the direct care of this critically ill patient, excluding procedure time. ED Disposition Clinical Impression: Atypical chest pain Disposition: DC-01 TO HOME OR SELFCARE Is pt being admited?: No Does the pt Need Aspirin: No Condition: Stable Instructions: Chest Pain (ED) Additional Instructions: Returns to the emergency department any recurrent pain or chest problem. Follow-up with your usual physicians. Referrals: PRIMARY CARE, [Primary Care Provider] - 3-5 Days Forms: Work/School Release Form(ED) Time of Disposition: 13:14
[2018-11-26 09:09] LABS: Basophils % (Auto) 0.5 % (0.0-1.8); Eosinophils # (Auto) 0.1 K/mm3 (0.0-0.4); Eosinophils % (Auto) 1.8 % (0.0-4.3); Hematocrit 45.6 % (35.5-45.6); Hemoglobin 15.2 gm/dl (11.8-15.2); Lymphocytes % (Auto) 39.3 % (13.4-35.0); Mean Corpuscular HGB Conc 33 % (32-34); Mean Corpuscular Volume 97 fl (84-94); Monocytes # (Auto) 0.6 K/mm3 (0.0-0.8); Platelet Count 298 K/mm3 (140-440)
[2018-11-26 09:22] LABS: BUN/Creatinine Ratio 10; Blood Urea Nitrogen 10 mg/dL (9-20); Calcium 8.6 mg/dL (8.4-10.2); Hemolysis Index 263
[2018-11-26 09:23] LABS: Creatine Kinase MB 3.5 ng/mL (0.0-4.0)
--- NOTE | 2018-11-26 09:26 | XRay Report ---
FINAL REPORT EXAM: XR CHEST ROUTINE 2V HISTORY: CP COMPARISON: 09/27/2015 TECHNIQUE: Frontal and lateral views of the chest. FINDINGS: The cardiomediastinal silhouette is normal in appearance. The lungs are clear without focal consolidation. There is no pleural effusion or pneumothorax. There is no acute soft tissue or osseous abnormality. IMPRESSION: No acute cardiopulmonary disease.
[2018-11-26 13:53] VITALS: BP 125/75
== END 2018-11-26 13:50 | disposition home or self-care (01) ==
LOC: ED 07:52
DX: R07.89 Other chest pain (principal); I10 Essential (primary) hypertension; I25.2 Old myocardial infarction; K21.9 Gastro-esophageal reflux disease without esophagitis; E78.00 Pure hypercholesterolemia, unspecified; Z95.1 Presence of aortocoronary bypass graft; Z79.82 Long term (current) use of aspirin
CPT/HCPCS: 36415; 71046; 80048; 82550; 82553; 84484; 85025; 93005; 93010; 99284